=== PATIENT | male | born 1970 | race Two or more races ===

== ENCOUNTER 2024-01-13 09:54 | Emergency (ER) | payer SELFPAY ==
[2024-01-13 10:03] VITALS: BP 156/91; PULSE 66; RESP 20; TEMP 36.8; O2SAT 97
--- NOTE | 2024-01-13 10:20 | W.ED.GENAD ---
Discharge Plan Disposition Patient Disposition: Home Condition: Stable Discharge Details Clinical Impression: Encounter for removal of sutures Primary Care Provider: None,None ED Provider: Idania Chen Discharge Instructions Instructions: Stitches Removal Referrals: Primary Care Provider [Outside] - 5 days Discharge Data Discharge Date/Time-TO BE ENTERED AT DEPARTURE: 01/13/24 10:37 HPI General Mode of arrival: ambulatory. Date/Time Provider Initiated Documentation: 01/13/24 10:02. Limitations to Documentation: language barrier (cloth shader used). Information obtained by: patient, RN notes reviewed and old records reviewed. HPI Narrative: 53-year-old male who is [place]ian-speaking only presents to the ER with a chief complaint of suture removal for index finger laceration to his left hand. He had sutures placed on January 03 in [place]. No surrounding erythema, swelling or drainage or signs of infection. Sutures were placed 10 days ago. Will have ED staff remove sutures in place Band-Aid. Related Data Allergies Allergy/AdvReac Type Severity Reaction Status Date / Time No Known Allergies Allergy Unverified 01/13/24 10:09 General Stated Complaint: SutureRem ADOLFO: 5 Exam Extrem Left upper extremity: hand (Approx 11 simple interrupted sutures to the distal tip of L index) Course Vital Signs Vital signs: Vital Signs Temperature 36.8 C 01/13/24 10:03 Pulse 66 01/13/24 10:03 Respiratory Rate 20 01/13/24 10:03 Blood Pressure 156/91 H 01/13/24 10:03 Pulse Oximetry 97 01/13/24 10:03 Temperature 36.8 C 01/13/24 10:03 Temperature Source Skin 01/13/24 10:03 Pulse 66 01/13/24 10:03 Respiratory Rate 20 01/13/24 10:03 Blood Pressure 156/91 H 01/13/24 10:03 Blood Pressure Position Sitting 01/13/24 10:03 Pulse Oximetry 97 01/13/24 10:03 Oxygen Delivery Method Room Air 01/13/24 10:03 Oxygen Flow Rate 0 01/13/24 10:03 Medical Decision Making 53-year-old male who is [place]vian-speaking only presents to the ER with a chief complaint of suture removal for index finger laceration to his left hand. He had sutures placed on January 03 in [place]. No surrounding erythema, swelling or drainage or signs of infection. Sutures were placed 10 days ago. Will have ED staff remove sutures in place Band-Aid. This text was generated using [employer] system, please disregard any oddities of phrase or misspellings. Quality:SDOH Health Related Social Needs: No Data to Display PFSH All Active Problems (Updated 01/13/24 @ 10:24 by Idania Chen NP) Encounter for removal of sutures (Acute) Social History Smoking risk assessment performed?: No
== END 2024-01-13 10:37 | disposition home or self-care (01) ==
PROVIDERS: Emergency Provider Registered Nurse Emergency
DX: S61.211D Laceration without foreign body of left index finger without damage to nail, subsequent encounter (principal); X58.XXXD Exposure to other specified factors, subsequent encounter
CPT/HCPCS: 99281